=== PATIENT | female | born 1965 | race African-American/Black ===

== ENCOUNTER 2016-12-13 12:35 | Emergency (ER) | payer OTHER ==
[~2016-12-13] VITALS: Ht 177.8 cm; Wt 92.5 kg
[~2016-12-13 12:35] MED LIST: ALBU17I INH; COZA50TA PO; HYDR12.56 PO; METH750T2 PO
[2016-12-13 12:39] VITALS: BP 145/96; PULSE 82; RESP 18; TEMP 97.8; O2SAT 94
--- NOTE | 2016-12-13 12:43 | PD ---
Physical Exam Time Seen by Provider: 12:40 Narrative 51 year old female presents to the Ed for evaluation for cough since August 2016 with some post tussive emesis. Pt now reports R flank pain radiating to her RUQ. Pt abdominal surgery includes partial hysterectomy and 3 C section. Subjective fever, chills starting two days ago. Pt has taken tylenol PM at night. No urinary symptoms. No diarrhea. Last BM this morning. Pt has history of HTN, hypothyroid Data Data Last Documented VS Vital Signs Date Time Temp Pulse Resp B/P Pulse Ox O2 Delivery O2 Flow Rate FiO2 12/13/16 18:33 72 18 152/92 99 Room Air 12/13/16 12:39 97.8 Orders Complete Blood Count With Diff (12/13/16 12:43) Comprehensive Metabolic Panel (12/13/16 12:43) Lipase (12/13/16 12:43) Prothrombin Time / Inr (Pt) (12/13/16 12:43) Act Partial Throm Time (Ptt) (12/13/16 12:43) Urinalysis - C+S If Indicated (12/13/16 12:43) Electrocardiogram (12/13/16 12:43) Chest, Single Ap (12/13/16 16:24) Ct Abd/Pel W Iv Contrast(Rout) (12/13/16 16:24) Iv Access Insert/Monitor (12/13/16 16:24) Iohexol 350 Inj (Omnipaque 350 Inj) (12/13/16 17:24) Labs Laboratory Tests Test 12/13/16 13:00 White Blood Count 7.0 TH/MM3 Red Blood Count 4.84 MIL/MM3 Hemoglobin 12.9 GM/DL Hematocrit 40.4 % Mean Corpuscular Volume 83.5 FL Mean Corpuscular Hemoglobin 26.8 PG Mean Corpuscular Hemoglobin 32.0 % Concent Red Cell Distribution Width 16.8 % Platelet Count 334 TH/MM3 Mean Platelet Volume 7.5 FL Neutrophils (%) (Auto) 59.6 % Lymphocytes (%) (Auto) 34.5 % Monocytes (%) (Auto) 4.5 % Eosinophils (%) (Auto) 0.5 % Basophils (%) (Auto) 0.9 % Neutrophils # (Auto) 4.2 TH/MM3 Lymphocytes # (Auto) 2.4 TH/MM3 Monocytes # (Auto) 0.3 TH/MM3 Eosinophils # (Auto) 0.0 TH/MM3 Basophils # (Auto) 0.1 TH/MM3 CBC Comment DIFF FINAL Differential Comment Prothrombin Time 10.5 SEC Prothromb Time International 1.0 RATIO Ratio Activated Partial 29.6 SEC Thromboplast Time Urine Color YELLOW Urine Turbidity CLEAR Urine pH 6.0 Urine Specific [place] 1.031 Urine Protein TRACE mg/dL Urine Glucose (UA) NEG mg/dL Urine Ketones NEG mg/dL Urine Occult Blood NEG Urine Nitrite NEG Urine Bilirubin NEG Urine Urobilinogen 2.0 MG/DL Urine Leukocyte Esterase NEG Urine RBC 1 /hpf Urine WBC 1 /hpf Urine Squamous Epithelial 4 /hpf Cells Urine Mucus FEW /lpf Microscopic Urinalysis Comment CULT NOT INDICATED Sodium Level 142 MEQ/L Potassium Level 3.7 MEQ/L Chloride Level 103 MEQ/L Carbon Dioxide Level 36.4 MEQ/L Anion Gap 3 MEQ/L Blood Urea Nitrogen 16 MG/DL Creatinine 1.17 MG/DL Estimat Glomerular Filtration 59 ML/MIN Rate Random Glucose 101 MG/DL Calcium Level 9.5 MG/DL Total Bilirubin 0.3 MG/DL Aspartate Amino Transf 16 U/L (AST/SGOT) Alanine Aminotransferase 26 U/L (ALT/SGPT) Alkaline Phosphatase 164 U/L Total Protein 7.9 GM/DL Albumin 3.9 GM/DL Lipase 81 U/L [facility] Medical Record Reviewed: Yes Supervised Visit with GERBER: No Narrative Course Workup initiated in triage. Scripts Pantoprazole (Protonix)20 Mg Tab20 Mg PO DAILY #30 TAB Ref 0 Prov:Ashutosh Denton MD 12/13/16 Ondansetron (Zofran)4 Mg Tab4 Mg PO Q6HR PRN (NAUSEA OR VOMITING) #10 TAB Ref 0 Prov:Ashutosh Denton MD 12/13/16 Dicyclomine (Bentyl)20 Mg Tab20 Mg PO TID #15 TAB Ref 0 Prov:Ashutosh Denton MD 12/13/16 Eufemia Zuniga Dec 13, 2016 12:43
[2016-12-13 13:29] LABS: AUTOMATED NEUTROPHIL # 4.2 TH/MM3 (1.8-7.7); BASOPHIL # 0.1 TH/MM3 (0-0.2); BASOPHIL % 0.9 % (0.0-2.0); EOSINOPHIL % 0.5 % (0.0-4.0); HEMATOCRIT 40.4 % (35.0-46.0); HEMO FLAGS DIFF FINAL; LYMPH % 34.5 % (9.0-44.0); LYMPHOCYTE # 2.4 TH/MM3 (1.0-4.8); MEAN CELL VOLUME 83.5 FL (80.0-100.0); MEAN CORPUSCULAR HEMOGLOBIN 26.8 PG (27.0-34.0); MONO % 4.5 % (0.0-8.0); NEUT % 59.6 % (16.0-70.0); PLATELET COUNT 334 TH/MM3 (150-450); RED BLOOD COUNT 4.84 MIL/MM3 (4.00-5.30); RED CELL DISTRIBUTION WIDTH 16.8 % (11.6-17.2)
[2016-12-13 13:33] LABS: APTT (PATIENT) 29.6 SEC (24.3-30.1); PROTHROMBIN TIME - PATIENT 10.5 SEC (9.8-11.6)
[2016-12-13 13:41] LABS: BLOOD, URINE NEG (NEG); GLUCOSE,URINE NEG (NEG); KETONE, URINE NEG (NEG); MUCUS URINE FEW /lpf (OCC); NITRITE,URINE NEG (NEG); SQUAMOUS EPITHELIAL CELL URINE 4 /hpf (0-5); URINE COLOR YELLOW (YELLW/STRAW)
[2016-12-13 13:43] LABS: ALT (GPT) 26 U/L (10-53); ANION GAP 3 MEQ/L (5-15); AST (GOT) 16 U/L (15-37); BICARBONATE 36.4 MEQ/L (21.0-32.0); BLOOD UREA NITROGEN 16 MG/DL (7-18); CHLORIDE 103 MEQ/L (98-107); GLOMERULAR FILTRATION RATE 59 ML/MIN (>89); POTASSIUM 3.7 MEQ/L (3.5-5.1); SODIUM (NA) 142 MEQ/L (136-145)
[2016-12-13 13:50] LABS: ALKALINE PHOSPHATASE 164 U/L (45-117); TOTAL BILIRUBIN ADULT 0.3 MG/DL (0.2-1.0)
[2016-12-13 13:53] LABS: COMMENT (UR) CULT NOT INDICATED; CULTURE IF INDICATED CULT NOT INDICATED
[2016-12-13] MEDS ORDERED: CITA40TA4 PO (16:08)
[2016-12-13] MEDS ORDERED: HYDR12.57 PO (16:08)
[2016-12-13] MEDS ORDERED: VENTAER INH (16:08)
[2016-12-13] MEDS ORDERED: LOSA50TA PO (16:08)
[2016-12-13 16:13] VITALS: BP 144/85; PULSE 66; RESP 18; O2SAT 98
--- NOTE | 2016-12-13 16:33 | PD ---
HPI Chief Complaint: Abdominal Pain Time Seen by Provider: 16:15 Travel History International Travel<30 days: No Contact w/Intl Traveler<30days: No Traveled to known affect area: No History of Present Illness HPI 51-year-old female complains of persistent cough and abdominal pain. Patient states that she has chronic recurrent cough for the past several months. Patient has been seen by personal physician and had chest x-ray done twice. Patient states that she was advised that she has some spot on the left lung on the chest x-ray. Patient states that the cough is mostly dry cough and worse at night. Patient states that she has occasionally vomited during coughing spell. Patient was given albuterol inhaler in the past however only used once. Patient started having low abdominal pain and left-sided abdominal pain for the past 2 days. Patient states the pain is sharp pain constant pain radiation to the back. Patient states that she has intermittent nausea vomiting for the past 2 days. Patient denied dysuria or frequency. Patient denies any vaginal bleeding. Patient states that she has mild vaginal discharge today. Patient status post hysterectomy 12 years ago. Patient has family history of asthma. PFSH Past Medical History Anemia: Yes Depression: Yes Heart Rhythm Problems: No Cardiac Catheterization: No Cardiovascular Problems: Yes (STRESS TEST PRIOR ) High Cholesterol: No Congestive Heart Failure: No Dementia: Yes Diabetes: No Diminished Hearing: No Gastrointestinal Disorders: No Genitourinary: Yes (CHRONIC RENAL INSUFFICENCY) Hypertension: Yes Thyroid Disease: Yes (NOT ON MEDICATIONS) Tetanus Vaccination: > 5 Years Influenza Vaccination: No ?: Not Menopausal: Yes Past Surgical History Section: Yes (X 3) Coronary Artery Bypass Graft: No Eye Surgery: Yes (CHALAZIUMS) Gynecologic Surgery: Yes (PARTIAL HYSTERECTOMY) Hysterectomy: Yes (PARTIAL) Neurologic Surgery: No Other Surgery: Yes Social History Alcohol Use: No Tobacco Use: No Substance Use: No Allergies-Medications (Allergen,Severity, Reaction): Coded Allergies: Advil (Verified Allergy, Severe, tongue swelling, 12/13/16) Compazine (Verified Allergy, Severe, SHAKING, 12/13/16) Erythromycin (Verified Allergy, Severe, Swelling, 12/13/16) Lisinopril (Verified Allergy, Severe, SWELLING, 12/13/16) Reported Meds & Prescriptions Reported Meds & Active Scripts Active Reported Hydrochlorothiazide 12.5 Mg Cap 12.5 Mg PO DAILY Citalopram (Citalopram Hydrobromide) 40 Mg Tab 40 Mg PO DAILY Losartan (Losartan Potassium) 50 Mg Tab 50 Mg PO DAILY Ventolin Hfa 18 GM Inh (Albuterol Sulfate) 90 Mcg/Act Aer 2 Puff INH Q4-6H PRN Review of Systems General / Constitutional: No: Fever Eyes: No: Visual changes HENT: No: Headaches Cardiovascular: No: Chest Pain or Discomfort Respiratory: Positive: Cough, No: Shortness of Breath Gastrointestinal: Positive: Nausea, Vomiting, Abdominal Pain Genitourinary: No: Dysuria Musculoskeletal: No: Pain Skin: No Rash Neurologic: No: Weakness Psychiatric: No: Depression Endocrine: No: Polydipsia Hematologic/Lymphatic: No: Easy Bruising Physical Exam Narrative GENERAL: Well-nourished, well-developed patient. SKIN: Warm and dry. HEAD: Normocephalic. EYES: No scleral icterus. No injection or drainage. NECK: Supple, trachea midline. No JVD or lymphadenopathy. CARDIOVASCULAR: Regular rate and rhythm without murmurs, gallops, or rubs. RESPIRATORY: Breath sounds equal bilaterally. No accessory muscle use. GASTROINTESTINAL: Abdomen soft, nondistended. Patient has mild tenderness on palpation left upper quadrant abdomen and lower abdomen. No rebound tenderness. No mass. MUSCULOSKELETAL: No cyanosis, or edema. BACK: Nontender without obvious deformity. No CVA tenderness. Data Data Last Documented VS Vital Signs Date Time Temp Pulse Resp B/P Pulse Ox O2 Delivery O2 Flow Rate FiO2 12/13/16 16:13 66 18 144/85 98 Room Air 12/13/16 12:39 97.8 Orders Complete Blood Count With Diff (12/13/16 12:43) Comprehensive Metabolic Panel (12/13/16 12:43) Lipase (12/13/16 12:43) Prothrombin Time / Inr (Pt) (12/13/16 12:43) Act Partial Throm Time (Ptt) (12/13/16 12:43) Urinalysis - C+S If Indicated (12/13/16 12:43) Electrocardiogram (12/13/16 12:43) Chest, Single Ap (12/13/16 16:24) Ct Abd/Pel W Iv Contrast(Rout) (12/13/16 16:24) Iv Access Insert/Monitor (12/13/16 16:24) Iohexol 350 Inj (Omnipaque 350 Inj) (12/13/16 17:24) Labs Laboratory Tests Test 12/13/16 13:00 White Blood Count 7.0 TH/MM3 Red Blood Count 4.84 MIL/MM3 Hemoglobin 12.9 GM/DL Hematocrit 40.4 % Mean Corpuscular Volume 83.5 FL Mean Corpuscular Hemoglobin 26.8 PG Mean Corpuscular Hemoglobin 32.0 % Concent Red Cell Distribution Width 16.8 % Platelet Count 334 TH/MM3 Mean Platelet Volume 7.5 FL Neutrophils (%) (Auto) 59.6 % Lymphocytes (%) (Auto) 34.5 % Monocytes (%) (Auto) 4.5 % Eosinophils (%) (Auto) 0.5 % Basophils (%) (Auto) 0.9 % Neutrophils # (Auto) 4.2 TH/MM3 Lymphocytes # (Auto) 2.4 TH/MM3 Monocytes # (Auto) 0.3 TH/MM3 Eosinophils # (Auto) 0.0 TH/MM3 Basophils # (Auto) 0.1 TH/MM3 CBC Comment DIFF FINAL Differential Comment Prothrombin Time 10.5 SEC Prothromb Time International 1.0 RATIO Ratio Activated Partial 29.6 SEC Thromboplast Time Urine Color YELLOW Urine Turbidity CLEAR Urine pH 6.0 Urine Specific [place] 1.031 Urine Protein TRACE mg/dL Urine Glucose (UA) NEG mg/dL Urine Ketones NEG mg/dL Urine Occult Blood NEG Urine Nitrite NEG Urine Bilirubin NEG Urine Urobilinogen 2.0 MG/DL Urine Leukocyte Esterase NEG Urine RBC 1 /hpf Urine WBC 1 /hpf Urine Squamous Epithelial 4 /hpf Cells Urine Mucus FEW /lpf Microscopic Urinalysis Comment CULT NOT INDICATED Sodium Level 142 MEQ/L Potassium Level 3.7 MEQ/L Chloride Level 103 MEQ/L Carbon Dioxide Level 36.4 MEQ/L Anion Gap 3 MEQ/L Blood Urea Nitrogen 16 MG/DL Creatinine 1.17 MG/DL Estimat Glomerular Filtration 59 ML/MIN Rate Random Glucose 101 MG/DL Calcium Level 9.5 MG/DL Total Bilirubin 0.3 MG/DL Aspartate Amino Transf 16 U/L (AST/SGOT) Alanine Aminotransferase 26 U/L (ALT/SGPT) Alkaline Phosphatase 164 U/L Total Protein 7.9 GM/DL Albumin 3.9 GM/DL Lipase 81 U/L [facility] Medical Decision Making Medical Screen Exam Complete: Yes Emergency Medical Condition: Yes Interpretation(s) [address] scan abdomen pelvis shows nonspecific minimal indurative change in the mesentery below the umbilicus. Chest x-ray shows no acute consolidation. CBC within normal limit. CMP within normal limit. Creatinine 1.17. Alkaline phosphatase 164. UA is negative. Differential Diagnosis Differential diagnosis including reactive airway disease, bronchitis, pneumonia , GERD, gastritis, PUD, appendicitis, cholecystitis, colitis, UTI, pyelonephritis, nephrolithiasis. Narrative Course 51-year-old female with persistent cough and abdominal pain Diagnosis Primary Impression: Gastroenteritis Additional Impression: Chronic cough Patient Instructions: General Instructions Additional Instructions: Take medications as directed. 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 Return if persistent problem or worse. Med/Other Pt SpecificInfo: Prescription(s) given Scripts Pantoprazole (Protonix)20 Mg Tab20 Mg PO DAILY #30 TAB Ref 0 Prov:Ashutosh Denton MD 12/13/16 Ondansetron (Zofran)4 Mg Tab4 Mg PO Q6HR PRN (NAUSEA OR VOMITING) #10 TAB Ref 0 Prov:Ashutosh Denton MD 12/13/16 Dicyclomine (Bentyl)20 Mg Tab20 Mg PO TID #15 TAB Ref 0 Prov:Ashutosh Denton MD 12/13/16 Disposition: 01 DISCHARGE HOME Condition: Stable Ashutosh Denton MD Dec 13, 2016 16:33
--- NOTE | 2016-12-13 17:19 | RADRPT ---
EXAM DATE/TIME: 12/13/2016 16:51 [facility] COMPARISON: CHEST SINGLE AP, May 05, 2014, 18:52. INDICATIONS : Cough. MEDICAL HISTORY : None. SURGICAL HISTORY : None. ENCOUNTER: Initial ACUITY: 3 months PAIN SCORE: 2/10 LOCATION: Bilateral chest FINDINGS: A single view of the chest demonstrates the lungs to be symmetrically aerated without evidence of mas s, infiltrate or effusion. The cardiomediastinal contours are unremarkable. Osseous structures are intact. CONCLUSION: No acute disease. Jose G Rivero MD FACR on December 13, 2016 at 17:17 Board Certified Radiologist. This report was verified electronically.
[2016-12-13] MEDS ORDERED: IOHEXOL 350 MG/ML 10 ML VIAL (for RAD DIAG) IV ONE (17:24)
--- NOTE | 2016-12-13 17:35 | RADRPT ---
EXAM DATE/TIME: 12/13/2016 17:13 [facility] COMPARISON: No previous studies available for comparison. INDICATIONS : Diffuse abdominal pain. IV CONTRAST: 85 cc Omnipaque 350 (iohexol) IV ORAL CONTRAST: No oral contrast ingested. RADIATION DOSE: 22.34 CTDIvol (mGy) MEDICAL HISTORY : Hypertension. Hypothyroidism. SURGICAL HISTORY : Hysterectomy. section. ENCOUNTER: Initial ACUITY: 2 days PAIN SCALE: 4/10 LOCATION: Bilateral abdomen/pelvis TECHNIQUE: Volumetric scanning of the abdomen and pelvis was performed. Using automated exposure control and adjustment of the mA and/or kV according to patient size, radiation dose was kept as low as reasonably achievable to obtain optimal diagnostic quality images. FINDINGS: Lung bases are clear. The liver is free of focal defects. Spleen, pancreas and adrena ls are unremarkable. There is symmetrical renal function. There is no ascites or adenopathy appreciated. There is a large amount of stool in the sigmoid colon. There is very minimal induration in the mesen issac. I do not see diverticulitis. There is no free air. Review of bone windows reveals only degenerative changes. CONCLUSION: Nonspecific minimal indurative changes in the mesentery, slightly to the right of mid line below the umbilicus. I do not see evidence for diverticulitis. Jose G Rivero MD FACR on December 13, 2016 at 17:28 Board Certified Radiologist. This report was verified electronically.
[2016-12-13] MEDS ORDERED: ZOFR4TAB PO (17:57)
[2016-12-13] MEDS ORDERED: PANT20 PO (17:57)
[2016-12-13] MEDS ORDERED: BENT20TA PO (17:57)
[2016-12-13 18:33] VITALS: BP 152/92; PULSE 72; RESP 18; O2SAT 99
--- NOTE | 2016-12-14 21:20 | EKG ---
Date Performed: 12/13/2016 Time Performed: 13:22:55 PTAGE: 51 years EKG: Sinus rhythm NONSPECIFIC T-WAVE ABNORMALITY BORDERLINE ECG PREVIOUS TRACING : 05/05/2014 23.44 DOCTOR: Sabas Carvalho Interpretating Date/Time 12/14/2016 21:10:06
== END 2016-12-13 18:48 | disposition home or self-care (01) ==
LOC: NEPA 12:35
DX: K52.9 Noninfective gastroenteritis and colitis, unspecified (principal); R05 Cough; R10.9 Unspecified abdominal pain; N89.8 Other specified noninflammatory disorders of vagina; R94.31 Abnormal electrocardiogram [ECG] [EKG]; I10 Essential (primary) hypertension; E07.9 Disorder of thyroid, unspecified; Z86.2 Personal history of diseases of the blood and blood-forming organs and certain disorders involving the immune mechanism; Z86.59 Personal history of other mental and behavioral disorders; Z86.79 Personal history of other diseases of the circulatory system
CPT/HCPCS: 71010; 74177; 80053; 81001; 83690; 85025; 85610; 85730; 93005; 99284; Q9967